=== PATIENT | male | born 1995 | race African-American/Black ===

== ENCOUNTER 2017-06-13 23:58 | Emergency (ER) | payer OTHER ==
[~2017-06-13] VITALS: Ht 180.3 cm; Wt 86.5 kg
[2017-06-14 00:12] VITALS: TEMP 36.4; Ht 180.3 cm; Wt 86.5 kg
[2017-06-14] MEDS ORDERED: LORAZEPAM 2 MG/ML 1 ML VIAL IV STA (00:18)
[2017-06-14] MEDS ORDERED: SODIUM CHLORIDE 0.9% 1000ML 1,000 ML IV STA ×2 (00:18→01:13)
[2017-06-14 00:34] LABS: BASO % 0.4 %; BASO ABS # 0.03 K/uL (0-0.2); COMPLETE YES; EOS % 2.3 %; HEMATOCRIT 40.6 % (42-52); IG% 0.1 %; LYMPH % 48.3 %; LYMPH ABS # 3.35 K/uL (1.2-3.4); MEAN CELL VOLUME 85.1 fL (80-100); MEAN CORPUSCULAR HEMOGLOBIN 30.2 pg (25-34); MEAN CORPUSCULAR HGB CONC 35.5 g/dl (32-36); MEAN PLATELET VOLUME 9.3 fL (7.4-10.4); MONO % 10.2 %; NEUT % 38.7 %; PLATELET COUNT 230 K/uL (130-400); RED BLOOD COUNT 4.77 M/uL (4.7-6.1); WHITE BLOOD COUNT 6.94 K/uL (4.8-10.8)
[2017-06-14 00:53] LABS: BUN/CREATININE RATIO 6.5 (10-20); CALCIUM 9.1 mg/dl (8.5-10.1); CREATININE 1.5 mg/dl (0.60-1.40); MAGNESIUM 2.2 mg/dl (1.8-2.4); POTASSIUM 3.8 mmol/L (3.5-5.1)
[2017-06-14 01:08] LABS: THYROID STIMULATING HORMONE 3.58 uIu/ml (0.300-4.500)
[2017-06-14 02:39] LABS: CREATININE 1.3 mg/dl (0.60-1.40)
--- NOTE | 2017-06-14 03:07 | EMERGENCY ROOM VISIT NOTE ---
History First contact with patient: 00:09 Chief Complaint: PALPITATIONS Stated Complaint: CHEST PALPATATIONS History of Present Illness The patient is a 22 year old male who presents to the Emergency Room with complaints of chest palpitations for the past half hour. Patient has a history of intermittent palpitations in the past. He has a normal Holter monitor in the past per patient. Patient states tonight he was watching TV when symptoms developed. He then became anxious and symptoms got worse which prompted him to come to the ER. he denies chest pain, dyspnea, fever, chills, recent illness, abdominal pain, vomiting, diarrhea. Patient states he exercises regularly without difficulties. He worked out today and had no problems with this. No excessive caffeine use per patient. He denies alcohol tobacco or drug use. No supplements. Review of Systems See HPI for pertinent positives & negatives. A total of 10 systems reviewed and were otherwise negative. Past Medical/Surgical History none Social History Smoking Status: Never Smoker Smokeless Tobacco Use: No Alcohol Use: none Drug Use: none Occupation Status: [employer] student Current/Historical Medications No Active Prescriptions or Reported Meds Physical Exam Vital Signs Date Time Temp Pulse Resp B/P (MAP) Pulse Ox O2 Delivery O2 Flow Rate FiO2 06/14/17 00:38 Room Air 06/14/17 00:38 Room Air 06/14/17 00:20 101 06/14/17 00:12 36.4 86 18 163/94 99 Room Air Physical Exam VITALS: Vitals are noted on the nurse's note and reviewed by myself. Vital signs hypertensive GENERAL: Pleasant male anxious-appearing, in no acute distress, nondiaphoretic, well-developed well-nourished. SKIN: The skin was without rashes, erythema, edema, or bruising. There is no tenting of the skin. Capillary reflex less than 2 seconds. HEAD: Normocephalic atraumatic. EARS: External auditory canals clear, tympanic membranes pearly phillips without erythema or effusion bilaterally. EYES: Pupils equal round and reactive to light and accommodation. Conjunctivae without injection, sclerae without icterus. Extraocular movements intact. NOSE: Patent, turbinates without inflammation or discharge. MOUTH: Mucous membranes moist. Pharynx without erythema or exudate. Uvula midline. Airway patent. Tongue does not deviate. NECK: Supple without nuchal rigidity. No lymphadenopathy. No thyromegaly. Cervical spine is nontender. No JVD. HEART: Regular rate and rhythm without murmurs gallops or rubs. LUNGS: Clear to auscultation bilaterally without wheezes, rales or rhonchi. No dullness to percussion. No retractions or accessory muscle use. ABDOMEN: Positive bowel sounds x 4. Normal tympanic percussion. Soft, nontender, without masses or organomegaly. Aleman sign negative. No guarding or rebound tenderness. MUSCULOSKELETAL: No muscle atrophy, erythema, or edema noted. NEURO: Patient was alert and oriented to person place and time. Normal sensation to light and sharp touch. No focal neurological deficits. Medical Decision & Procedures Laboratory Results 06/14/17 00:25 Red Blood Count 4.77, Mean Corpuscular Volume 85.1, Mean Corpuscular Hemoglobin 30.2, Mean Corpuscular Hemoglobin Concent 35.5, Mean Platelet Volume 9.3, Neutrophils (%) (Auto) 38.7, Lymphocytes (%) (Auto) 48.3, Monocytes (%) (Auto) 10.2, Eosinophils (%) (Auto) 2.3, Basophils (%) (Auto) 0.4, Neutrophils # (Auto ) 2.68, Lymphocytes # (Auto) 3.35, Monocytes # (Auto) 0.71, Eosinophils # (Auto ) 0.16, Basophils # (Auto) 0.03 06/14/17 00:25 06/14/17 02:08 Test 06/14/17 00:25 06/14/17 02:08 White Blood Count 6.94 K/uL (4.8-10.8) Red Blood Count 4.77 M/uL (4.7-6.1) Hemoglobin 14.4 g/dL (14.0-18.0) Hematocrit 40.6 % (42-52) Mean Corpuscular Volume 85.1 fL (80-100) Mean Corpuscular Hemoglobin 30.2 pg (25-34) Mean Corpuscular Hemoglobin Concent 35.5 g/dl (32-36) Platelet Count 230 K/uL (130-400) Mean Platelet Volume 9.3 fL (7.4-10.4) Neutrophils (%) (Auto) 38.7 % Lymphocytes (%) (Auto) 48.3 % Monocytes (%) (Auto) 10.2 % Eosinophils (%) (Auto) 2.3 % Basophils (%) (Auto) 0.4 % Neutrophils # (Auto) 2.68 K/uL (1.4-6.5) Lymphocytes # (Auto) 3.35 K/uL (1.2-3.4) Monocytes # (Auto) 0.71 K/uL (0.11-0.59) Eosinophils # (Auto) 0.16 K/uL (0-0.5) Basophils # (Auto) 0.03 K/uL (0-0.2) RDW Standard Deviation 41.3 fL (36.4-46.3) RDW Coefficient of Variation 13.2 % (11.5-14.5) Immature Granulocyte % (Auto) 0.1 % Immature Granulocyte # (Auto) 0.01 K/uL (0.00-0.02) Anion Gap 6.0 mmol/L (3-11) BUN/Creatinine Ratio 6.5 (10-20) Calcium Level 9.1 mg/dl (8.5-10.1) Magnesium Level 2.2 mg/dl (1.8-2.4) Total Bilirubin 0.5 mg/dl (0.2-1) Direct Bilirubin 0.1 mg/dl (0-0.2) Aspartate Amino Transf (AST/SGOT) 58 U/L (15-37) Alanine Aminotransferase (ALT/SGPT) 40 U/L (12-78) Alkaline Phosphatase 130 U/L (45-117) Total Protein 7.1 gm/dl (6.4-8.2) Albumin 3.9 gm/dl (3.4-5.0) Thyroid Stimulating Hormone (TSH) 3.580 uIu/ml (0.300-4.500) Est Creatinine Clear Calc Drug Dose 95.7 ml/min Estimated GFR () 90.4 Estimated GFR (Non- 78.0 Total Creatine Kinase 1862 U/L (39-308) Medications Administered Medications (Trade) Dose Ordered Sig/Sami Route Start Time Stop Time Status Last Admin Dose Admin Sodium Chloride 1,000 ml @ 999 mls/hr Q1H1M STAT IV 06/14/17 00:18 06/14/17 01:18 DC 06/14/17 00:37 999 MLS/HR Lorazepam (Ativan Inj) 1 mg NOW STAT IV 06/14/17 00:18 06/14/17 00:20 DC 06/14/17 00:37 1 MG Sodium Chloride 1,000 ml @ 999 mls/hr Q1H1M STAT IV 06/14/17 01:13 06/14/17 02:13 DC 06/14/17 01:13 999 MLS/HR ED Course Prior records/ancillary studies reviewed. Triage Nursing notes reviewed. The patient's history was concerning for palpitations. Differential diagnosis: Etiologies such as premature contractions, electrolyte abnormality, cardiac dysrhythmia, thyroid dysfunction, pulmonary embolism, infection, gastrointestinal, as well as others were entertained. Physical examination: Benign as above. ER treatment provided: ativan On reassessment the patient felt better. Diagnostic interpretation by me: Cardiac monitoring revealed no dysrhythmia. The electrocardiogram was negative for pathologic change. Normal sinus, normal intervals, no acute ST-T wave changes. Rate of 91. Impression normal sinus rhythm interpreted by myself The labs revealed elevated CPK and creatinine. Repeat after 2 L fluids are greatly improved Imaging studies: Chest x-ray with no acute consolidation, pneumothorax or free air per my interpretation This appears to be consistent with palpitations and mild rhabdomyolysis. Patient is advised no exercising for the next few days and repeat his CPK and creatinine. He was advised to rest, stay well-hydrated. He Was well- appearing. He was advised to follow-up with health services for outpatient Holter monitoring and for further workup if symptoms persist. He was advised to decrease caffeine, alcohol tobacco and salt intake. He was advised to avoid excessive stimulants. He was advised to return to the ER immediately for chest pain, prolonged palpitations, worsening signs or symptoms or as needed. By the evaluation outlined above emergent etiologies such as electrolyte abnormality, cardiac dysrhythmia, thyroid dysfunction, pulmonary embolism, infection, as well as others were deemed relatively unlikely. The pt informed about the findings as listed above. All questions were answered and pleased with the treatment. Return instructions were outlined and the patient was discharged in stable condition. Case reviewed with my attending Referral: The patient was referred back to their primary care physician for follow-up in 2 to 3 days for a recheck of the current condition Medical Decision As above Medication Reconcilliation Current Medication List: was personally reviewed by me Blood Pressure Screening Patient's blood pressure: Elevated blood pressure Blood pressure disposition: Elevated BP felt to be situational Impression Primary Impression: Rhabdomyolysis Additional Impression: Palpitations Departure Information Dispostion Home / Self-Care Condition GOOD Prescriptions No Active Prescriptions or Reported Meds Referrals [facility] (PCP) Patient Instructions My [facility] Additional Instructions Recommend outpatient Holter monitor. Do not exercise for the next week. Repeat your CPK and creatinine within the week. Decrease caffeine, alcohol, tobacco and salt intake. Avoid stimulants. Rest and drink plenty of fluids as tolerated. Continue current medications. Return to the ER immediately for worsening or persistent prolonged palpitations , abdominal pain, vomiting, fevers, chest pains, difficulty breathing, worsening of your condition, or as needed. Follow up with your primary physician in 2-3 days for a recheck of your current condition. Problem Qualifiers Primary Impression: Rhabdomyolysis Rhabdomyolysis type: non-traumatic Qualified Codes: M62.82 - Rhabdomyolysis
[2017-06-14 03:25] VITALS: BP 127/84; PULSE 71; O2SAT 100
--- NOTE | 2017-06-14 06:51 | DIAGNOSTIC IMAGING REPORT ---
CHEST ONE VIEW PORTABLE CLINICAL HISTORY: Chest pain. Palpitations. COMPARISON STUDY: No previous studies for comparison. FINDINGS: Lung volumes are normal. There is no pneumothorax or pleural effusion. There is no consolidation to suggest pneumonia. Cardiac size is at the upper limits of normal. There is no evidence of pulmonary edema. IMPRESSION: No acute cardiopulmonary findings. Electronically signed by: Pablo Mohan M.D. 06/14/2017 6:50 AM Dictated Date/Time: 06/14/2017 6:49 AM
== END 2017-06-14 03:27 | disposition home or self-care (01) ==
LOC: C.EDB 06-14
DX: R00.2 Palpitations (principal); M62.82 Rhabdomyolysis

== ENCOUNTER 2018-01-23 20:03 | Emergency (ER) | payer OTHER ==
[~2018-01-23] VITALS: Ht 177.8 cm; Wt 89.0 kg
[2018-01-23 20:06] VITALS: TEMP 36.7; Ht 177.8 cm; Wt 89.0 kg
[2018-01-23 20:58] VITALS: BP 146/77; PULSE 84; O2SAT 100
--- NOTE | 2018-01-24 01:20 | EMERGENCY ROOM VISIT NOTE ---
ED Visit Note First contact with patient: 20:12 Chief Complaint: I think there is a worm in my upper lip. History of Present Illness: Mr. Zuluaga is a 22-year-old black male who ambulates into the ED complaining of left sided upper lip foreign body. Patient reports he has been feeling well over the last few days. He does report he recently had braces removed from his teeth. Patient reports just prior to coming to the emergency department he was brushing his teeth and when he was looking at his upper lift on the left he thought he saw something moving in the left and felt it could have been a warm. He reports he contacted his mother and she encouraged him to come to the emergency department. Currently he still complains of the sensation of something moving in his upper lip. There is no associated symptoms with this sensation. He felt the area was slightly reddened and swollen when he initially saw the area. He denies any recent trauma to the upper lip but does report he has had some chapped lips. He denies any previous history of intestinal worms or body warms. He denies any recent trauma to this area. Additionally he denies fevers, chills, sweats, upper respiratory tract symptoms, throat discomfort, voice changes, cough, wheezing, shortness of breath, decreased appetite, weight loss. Review of Systems: As noted above in history of present illness. 8 body systems were reviewed and found to be negative as noted above. Past Medical History: Rhabdomyolysis, palpitations. Current Medications: Patient denies. Allergies to Medications: Patient denies. Social History: Patient is currently university student; he feels safe in his home environment; patient denies tobacco use. Physical Examination: Vital Signs: Date Time Temp Pulse Resp B/P (MAP) Pulse Ox O2 Delivery O2 Flow Rate FiO2 01/23/18 20:58 84 20 146/77 100 01/23/18 20:06 36.7 80 18 152/91 100 Room Air GENERAL: 22-year-old female in no acute distress, nontoxic-appearing, afebrile and hemodynamically stable. Moderately anxious. NEUROLOGICAL: Awake, alert and oriented to person, place and time. Answering questions appropriately and following commands. Normal gait. Good hand eye coordination. SKIN: Warm, dry and pink. No soft tissue eruptions or trauma noted. HEENT: Atraumatic and normocephalic. No facial swelling noted. The area of the lip where the patient felt he saw the warm was palpated and his mouth was extensively explored. There was some mild swelling to the posterior aspect of the left upper lip. I was not able to palpate any foreign body/worms. The gingiva was pink without palpable abscess. No dental disease was noted. No dental tenderness. The airway was patent. The uvula was midline and no abscesses were seen. No tonsillar hypertrophy or exudates. ED Course: Patient is assessed as noted above. Patient's medication list was reviewed. Patient was educated about today's findings and structured on his treatment plan ; he verbalized understanding and agreement with this plan. Clinical Impression: Sensations of foreign body in the upper lip. Decision-Making: Initially my differential diagnosis I considered foreign body in the upper lip, abscess, gingivitis, mucocele and other causes. Disposition: Patient discharged home in stable condition; prior to departure he was reassessed and remained pain-free. Plan: Patient was encouraged to watch his upper lip over the next 3-4 days. He was encouraged to watch for any signs of infection including increasing redness/swelling or sensations of movement. Patient was encouraged to follow-up with his dentist for recheck if no better in 3-4 days. Patient was encouraged to return the ED for worsening symptoms, fevers, drainage , bleeding or any new/concerning symptoms.
== END 2018-01-23 20:59 | disposition home or self-care (01) ==
LOC: C.EDB 20:04 → C.EDD 20:59
DX: K13.29 Other disturbances of oral epithelium, including tongue (principal); M62.82 Rhabdomyolysis